=== PATIENT | male | born 1965 | race Caucasian/White ===

== ENCOUNTER 2016-08-18 09:37 | Day surgery (SDC) | payer OTHER ==
[2016-08-18] MEDS ORDERED: LIDOCAINE HCL 1% MPF SOL ONE (09:39)
[2016-08-18] MEDS ORDERED: PROPOFOL 10 MG/ML EMU IV ONE (09:39)
[2016-08-18] MEDS ORDERED: FENTANYL CITRATE 50 MCG/ML SOL ONE (09:40)
[2016-08-18] MEDS ORDERED: MIDAZOLAM 2 MG/2 ML SOL ONE (09:40)
[2016-08-18] MEDS ORDERED: LIDOCAINE HCL 2% MPF SOL ONE (10:13)
[2016-08-18 10:44] VITALS: RESP 16
[2016-08-18] MEDS: BUPIVACAINE HCL 0.5% MPF 10 ML SOL ONE ×3 (10:59→11:06)
[2016-08-18] MEDS: LIDOCAINE HCL 2% MPF SOL ONE ×2 (11:03→11:06)
[2016-08-18 11:43] VITALS: TEMP 97.4
[2016-08-18 11:54] VITALS: BP 140/86; PULSE 68; O2SAT 94
== END 2016-08-18 12:45 | disposition home or self-care (01) | DRG 74 ==
LOC: SURG 09:37
PROVIDERS: ATTEND Orthopaedic Surgery
DX: G56.03 Carpal tunnel syndrome, bilateral upper limbs (principal)
CPT/HCPCS: J2250; J3010; A6402; J2001; J2704

== ENCOUNTER 2018-09-28 19:54 | Observation (INO) | payer BC, OTHER ==
[2018-09-28] MEDS ORDERED: NITROGLYCERIN 0.4 MG TAB SL ONE (19:59)
[2018-09-28] MEDS ORDERED: ASPIRIN 81 MG CHEWABLE CTB ONE (19:59)
[2018-09-28] MEDS ORDERED: NITROGLYCERIN 0.4 MG TAB SL PRN (20:01)
[2018-09-28] MEDS ORDERED: SODIUM CHLORIDE 0.9% FLUSH 10 ML SOL IV PRN (20:01)
[2018-09-28] MEDS ORDERED: ASPIRIN 81 MG CHEWABLE CTB PO STA (20:01)
[2018-09-28] MEDS ORDERED: DILTIAZEM 5 MG/ML SOL IV ONE ×5 (20:04→21:13)
[2018-09-28 20:05] LABS: BASOPHILS % (AUTO) 1 % (0-3); EOSINOPHILS % (AUTO) 0 % (0-9); HEMATOCRIT 48 % (39-53); HEMOGLOBIN 16.5 gm/dl (13.5-17.7); LYMPHOCYTES % (AUTO) 16.5 % (10-50); MEAN CORPUSCULAR HEMOGLOBIN 31.1 pg (27.0-32.0); MEAN CORPUSCULAR HGB CONC 34.1 gm/dl (32.0-36.0); MEAN CORPUSCULAR VOLUME 91 fL (80-100); MONOCYTES % (AUTO) 7.3 % (0-12); NEUTROPHILS % (AUTO) 75.1 % (37-80)
[2018-09-28 20:24] LABS: BLOOD UREA NITROGEN 14 mg/dl (7-18); CALCIUM 8.8 mg/dl (8.5-10.1); CARBON DIOXIDE 25.1 mEq/L (21-32); CHLORIDE 104 mMol/L (98-107); CREATINE KINASE 581 U/L (39-308); CREATININE 0.96 mg/dl (0.80-1.30); GLUCOSE 125 mg/dl (74-106); SODIUM 142 mMol/L (136-145); TROP I < 0.017 ng/ml (0.000-0.056)
[2018-09-28] MEDS ORDERED: SODIUM CHLORIDE 0.9% 1000ML 1,000 ML IV SCH ×2 (20:45→21:00)
[2018-09-28] MEDS ORDERED: KETOROLAC TROMETHAMINE 30 MG/ML SOL IV ONE (20:50)
[2018-09-28] MEDS ORDERED: KETOROLAC TROMETHAMINE 30 MG/ML SOL ONE (20:59)
[2018-09-28] MEDS ORDERED: DILTIAZEM 5 MG/ML 125 MG in SODIUM CHLORIDE 0.9% 100 ML 100 ML IV SCH (21:15)
[2018-09-28] MEDS: ENOXAPARIN 40 MG SOL SC SCH (22:25)
[2018-09-28] MEDS: SODIUM CHLORIDE 0.9% 1000ML 1,000 ML IV SCH (22:25)
[2018-09-28] MEDS ORDERED: SOLUMEDROL 125 MG/2 ML 125 MG/2 ML PDS IV ONE (22:30)
[2018-09-28] MEDS: APAP/HYDROCODONE 1 EACH TABLET PO PRN (23:05)
[2018-09-28] MEDS: ALBUTEROL/IPRATROPIUM 1 VIAL SOL INH PRN (23:07)
[2018-09-29] MEDS: SODIUM CHLORIDE 0.9% 1000ML 1,000 ML IV SCH ×2 (04:46→13:05)
[2018-09-29] MEDS: APAP/HYDROCODONE 1 EACH TABLET PO PRN ×3 (04:53→17:40)
[2018-09-29] MEDS: ALBUTEROL/IPRATROPIUM 1 VIAL SOL INH PRN ×2 (04:53→09:57)
[2018-09-29 07:46] LABS: BASOPHILS % (AUTO) 0 % (0-3); EOSINOPHILS % (AUTO) 0 % (0-9); HEMATOCRIT 47 % (39-53); LYMPHOCYTES % (AUTO) 6.1 % (10-50); MEAN CORPUSCULAR HEMOGLOBIN 29.8 pg (27.0-32.0); MEAN CORPUSCULAR HGB CONC 32.2 gm/dl (32.0-36.0); MEAN CORPUSCULAR VOLUME 93 fL (80-100); MONOCYTES % (AUTO) 2.8 % (0-12); NEUTROPHILS % (AUTO) 90.8 % (37-80)
[2018-09-29 08:03] LABS: ALBUMIN 3.4 gm/dl (3.4-5.0); BILIRUBIN,TOTAL 0.6 mg/dl (0.2-1.0); CALCIUM 8.5 mg/dl (8.5-10.1); CARBON DIOXIDE 21.5 mEq/L (21-32); CREATININE 0.98 mg/dl (0.80-1.30); POTASSIUM 4.5 mMol/L (3.5-5.1); TOTAL PROTEIN 6.7 gm/dl (6.4-8.2)
[2018-09-29] MEDS ORDERED: AZITHROMYCIN 500 MG PDS IV SCH (09:15)
[2018-09-29] MEDS: ENOXAPARIN 40 MG SOL SC SCH ×2 (09:53→22:36)
[2018-09-29] MEDS ORDERED: AZITHROMYCIN 500 MG PDS 500 MG in SODIUM CHLORIDE 0.9% 250 ML 250 ML IV ONE (10:30)
[2018-09-29] MEDS: NICOTINE 7 MG PATCH TD SCH ×2 (11:31→17:33)
[2018-09-29] MEDS ORDERED: AZITHROMYCIN 500 MG PDS IV ONE (11:37)
[2018-09-29] MEDS ORDERED: SODIUM CHLORIDE 0.9% 250 ML 250 ML IV ONE (11:37)
[2018-09-29 16:38] VITALS: RESP 16
[2018-09-29 22:43] VITALS: O2SAT 97
[2018-09-30 07:57] VITALS: BP 138/86; PULSE 72; TEMP 98
[2018-09-30 08:12] LABS: CALCIUM 8.3 mg/dl (8.5-10.1); CARBON DIOXIDE 25.3 mEq/L (21-32); CREATININE 0.93 mg/dl (0.80-1.30); POTASSIUM 4.2 mMol/L (3.5-5.1)
[2018-09-30 08:32] LABS: BASOPHILS % (AUTO) 0 % (0-3); EOSINOPHILS % (AUTO) 0 % (0-9); HEMATOCRIT 41 % (39-53); HEMOGLOBIN 13.6 gm/dl (13.5-17.7); LYMPHOCYTES % (AUTO) 21.3 % (10-50); MEAN CORPUSCULAR HEMOGLOBIN 30.5 pg (27.0-32.0); MEAN CORPUSCULAR HGB CONC 33.3 gm/dl (32.0-36.0); MEAN CORPUSCULAR VOLUME 92 fL (80-100); MONOCYTES % (AUTO) 7.6 % (0-12); NEUTROPHILS % (AUTO) 70.5 % (37-80)
[2018-09-30] MEDS: NICOTINE 7 MG PATCH TD SCH (09:26)
[2018-09-30] MEDS: ENOXAPARIN 40 MG SOL SC SCH (09:45)
== END 2018-09-30 10:25 | disposition home or self-care (01) ==
LOC: ED 19:54 → ACUTE CARE 21:16 → INTOOBSV 21:16
PROVIDERS: ADMIT Family Medicine; ATTEND Family Medicine
DX: I48.91 Unspecified atrial fibrillation (principal); M62.82 Rhabdomyolysis; J18.1 Lobar pneumonia, unspecified organism
CPT/HCPCS: 36415; 71045; 71275; 80048; 80053; 82550; 84484; 85025; 85378; 93005; 93012; 94640; 96365; 96374; 96375; 99070; 99217; 99219; 99224; 99285; J0456; J1650; J1885; J2930; Q9967; A9270-GY; J3490

== ENCOUNTER 2018-10-18 20:38 | Emergency (ER) | payer OTHER, BC ==
[2018-10-18 21:09] VITALS: TEMP 96.1
[2018-10-18] MEDS ORDERED: TDAP VACCINE 0.5 ML SUS IM ONE ×2 (21:16→21:17)
[2018-10-18] MEDS ORDERED: BACITRACIN 500 U/GM OIN TOP ONE ×2 (21:24→21:27)
[2018-10-18 21:57] VITALS: BP 155/84; PULSE 76; RESP 14; O2SAT 93
== END 2018-10-18 21:37 | disposition home or self-care (01) | DRG 605 ==
LOC: ED 20:38
DX: S01.01XA Laceration without foreign body of scalp, initial encounter (principal)
CPT/HCPCS: 12002; 90471; 90715; 99284; A9270-GY

== ENCOUNTER 2018-10-23 09:23 | Outpatient (CLI) | payer BC, OTHER ==
[2018-10-18 21:57] VITALS: O2SAT 93
== END 2018-10-23 09:24 | disposition home or self-care (01) ==
LOC: CONVCARE 09:23
PROVIDERS: ATTEND Internal Medicine Cardiovascular Disease
DX: I48.0 Paroxysmal atrial fibrillation (principal); Z72.0 Tobacco use; E66.9 Obesity, unspecified
CPT/HCPCS: 93005